=== PATIENT | female | born 1945 | race Caucasian/White ===

== ENCOUNTER 2017-04-21 01:58 | Observation (INO) | payer OTHER, MEDICARE ==
[~2017-04-21] VITALS: Ht 162.6 cm; Wt 98.6 kg
[2017-04-21 02:31] LABS: HEMATOCRIT 43.7 % (36.0-46.0); MCH 29.7 PG (29.0-34.0); MCHC 33.4 G/DL (30.0-36.0); MEAN PLAT.VOLUME 9.6 uM^3 (9.5-12.4); PLATELET COUNT 320 K/uL (156-360); RBC DIS.WIDTH-CV 14.3 % (11.8-14.6); RBC DIS.WIDTH-SD 45.8 % (39-53); RED BLOOD COUNT 4.91 M/uL (3.80-5.20); WHITE BLOOD COUNT 15.6 K/uL (4.1-10.2)
[2017-04-21 02:43] LABS: CHLORIDE 106 mEq/L (99-109); POTASSIUM 3.8 mEq/L (3.7-5.4); SODIUM 143 mEq/L (136-147)
[2017-04-21 02:46] LABS: GLUCOSE 181 mg/dL (70-99)
[2017-04-21 02:47] LABS: ANION GAP 14 MEQ/L (2-14); TOTAL BILIRUBIN 0.7 mg/dL (0.0-1.0)
[2017-04-21 02:49] LABS: ALKALINE PHOSPHATASE 120 IU/L (3-129)
[2017-04-21 02:50] LABS: UREA NITROGEN (BUN) 27 mg/dL (9-23)
[2017-04-21 02:51] LABS: GFR ESTIMATE (CALCULATED) 58 mL/min/
[2017-04-21 04:38] LABS: LIPASE 39 U/L (1.0-51.0)
[2017-04-21 07:05] LABS: ADD MIUA? YES; BILIRUBIN NEGATIVE; BLOOD SMALL; COLOR YELLOW ((YELLOW)); GLUCOSE (STRIP) NEGATIVE; KETONES NEGATIVE; LEUKOCYTES NEGATIVE; NITRITE NEGATIVE; PROTEIN (STRIP) NEGATIVE; SPECIFIC GRAVITY 1.013 (1.000-1.030); UROBILINOGEN 0.2 MG/DL (0.2-1.0)
[2017-04-21 07:08] LABS: BACTERIA NONE SEEN /HPF; EPITHELIAL CELLS RARE /HPF; MUCUS TRACE /LPF; UCUL ADDED? NO; WHITE BLOOD CELLS 0-5 /HPF (0-5)
[2017-04-21] MEDS ORDERED: CELEBREX100 MG PO (11:27)
[2017-04-21] MEDS ORDERED: LEVOTHYROXINE125 MCG PO (11:27)
[2017-04-21] MEDS ORDERED: MULTIVITAMIN1 EAC2 PO (11:28)
[2017-04-21] MEDS ORDERED: TOPROL XL100 MG PO (11:28)
[2017-04-21] MEDS ORDERED: EXTRA STRENGTH500 M1 PO (11:29)
[2017-04-21] MEDS ORDERED: ALPRAZOLAM0.25 M2 PO (11:30)
[2017-04-21] MEDS ORDERED: WARFARIN SODIUM5 MG PO (11:31)
[2017-04-21] MEDS ORDERED: OMEPRAZOLE40 M1 PO (11:31)
[2017-04-21] MEDS ORDERED: ALLOPURINOL100 MG PO (11:32)
[2017-04-21] MEDS ORDERED: WARFARIN SODIU2.5 MG PO (11:32)
[2017-04-21 12:19] LABS: INTER. NORMALIZED RATIO 1.6; PROTHROMBIN TIME 18.3 SEC (10.2-12.9)
[2017-04-21 12:58] VITALS: BP 157/71
[2017-04-21 16:00] VITALS: BP 138/63
[2017-04-21 16:19] LABS: C DIFF TOXIN NEGATIVE (NEGATIVE)
[2017-04-21 16:21] LABS: PROBE CHECK PASS; SPECIMEN PROCESSING CONTROL PASS
[2017-04-21 20:54] VITALS: BP 171/87
[2017-04-22 00:08] VITALS: BP 116/56
[2017-04-22 04:30] VITALS: BP 119/62
[2017-04-22 05:34] LABS: HEMATOCRIT 36.1 % (36.0-46.0); MCHC 32.4 G/DL (30.0-36.0); MCV 92.6 FL (83-99); MEAN PLAT.VOLUME 9.8 uM^3 (9.5-12.4); PLATELET COUNT 231 K/uL (156-360); RBC DIS.WIDTH-CV 14.6 % (11.8-14.6); RBC DIS.WIDTH-SD 49.2 % (39-53); WHITE BLOOD COUNT 5.4 K/uL (4.1-10.2)
[2017-04-22 05:38] LABS: INTER. NORMALIZED RATIO 1.5; PROTHROMBIN TIME 16.2 SEC (10.2-12.9)
[2017-04-22 06:57] LABS: ANION GAP 9 MEQ/L (2-14); CHLORIDE 108 MEQ/L (99-109); GFR ESTIMATE (CALCULATED) 58 mL/min/; POTASSIUM 3.4 MEQ/L (3.7-5.4); SAMPLE HEMOLYSIS CHECK 0; SAMPLE ICTERIC CHECK 0; SAMPLE LIPEMIA CHECK 0; SODIUM 142 MEQ/L (136-147); UREA NITROGEN (BUN) 18 mg/dL (9-23)
[2017-04-22 07:04] LABS: GLUCOSE 105 mg/dL (70-99)
[2017-04-22 07:48] VITALS: BP 133/63
== END 2017-04-22 12:25 | disposition home or self-care (01) ==
LOC: EME 01:58 → 5WEST 11:21 → EDOF 11:21 → ENRESERV 11:23 → 5WEST 12:29
PROVIDERS: Internal Medicine; Nurse Practitioner Family; Physician Assistant
DX: K52.9 Noninfective gastroenteritis and colitis, unspecified (principal); R42 Dizziness and giddiness; I10 Essential (primary) hypertension; E87.2 Acidosis; R31.9 Hematuria, unspecified; I48.91 Unspecified atrial fibrillation; Z79.01 Long term (current) use of anticoagulants; E03.9 Hypothyroidism, unspecified; Z85.528 Personal history of other malignant neoplasm of kidney; Z90.5 Acquired absence of kidney; Z90.49 Acquired absence of other specified parts of digestive tract; Z98.1 Arthrodesis status
CPT/HCPCS: 74176; 80048; 80053; 81003; 83605; 83690; 85027; 85610; 87040; 87177; 87493; 87506; 93005; 99202; 99281; 99285; G0378; J0744; J1885; J2405; J2765; J3010; J7030; S0028; S0030